=== PATIENT | male | born 2000 | race Caucasian/White ===

== ENCOUNTER 2018-04-26 10:56 | Emergency (ER) | payer BC ==
[2018-04-26] MEDS ORDERED: NS 1,000 ML IV ONE (11:23)
[2018-04-26] MEDS ORDERED: ONDANSETRON 4 MG/2 ML VIAL IVP ONE (11:23)
[2018-04-26 11:36] LABS: PLATELET COUNT 321 10^3/uL (150-400)
--- NOTE | 2018-04-26 11:48 | EDPHY ---
H & P Stated Complaint: abd pain, n/v Time Seen by Provider: 04/26/18 11:21 HPI/ROS: HPI: This is a 17-year-old male who presents with Chief Complaint: Generalized abdominal pain, nausea, vomiting Location: Generalized abdomen Quality: Pain, nausea, vomiting Duration: 1 week Signs and Symptoms: no fever, + nausea, + vomiting, no hematemesis, no blood in stool, no abdominal bloating, no diarrhea, no back pain, no urinary symptoms, no testicular/groin pain, no indigestion, no chest pain, no shortness of breath Timing: Acute, worse in the morning Severity: Moderate Context: Patient is a student at [employer] presents with one-week history of generalized abdominal pain accompanied by nausea and 1-2 episodes of vomiting in the mornings. Treated for strep pharyngitis 2 weeks ago with 10 day course of amoxicillin. Denies any fever, blood in stool, hematemesis, diarrhea, constipation. Reports decreased appetite. No recent foreign travel. No concern for food borne illness. Has not drank any water from wells. Modifying Factors: None Comment: ROS: A comprehensive 10 system review of systems is otherwise negative aside from elements mentioned in the history of present illness. MEDICAL/SURGICAL/SOCIAL HISTORY: Medical history: PNA, strep throat, flu, mono Surgical history: Appendectomy Social history: Current every day smoker. Family history noncontributory. CONSTITUTIONAL: Well-developed, well-nourished teenage white male, awake and alert, no obvious distress HEENT: Atraumatic and normocephalic, PERRL, EOMI. Nares patent; no rhinorrhea; no nasal mucosal edema. Tympanic membranes clear. Oropharynx clear, no exudate and moist pink mucosa. Airway patent. No lymphadenopathy. No meningismus. Cardiovascular: Normal S1/S2, regular rate, regular rhythm, without murmur rub or gallop. PULMONARY/CHEST: Symmetrical and nontender. Clear to auscultation bilaterally. Good air movement. No accessory muscle usage. ABDOMEN: Soft, nondistended, nontender, no rebound, no guarding, no peritoneal signs, no masses or organomegaly. No CVAT. EXTREMITIES: 2/2 pulses, strength 5/5, no deformities, no clubbing, no cyanosis or edema. NEUROLOGICAL: no focal neuro deficits. GCS 15. SKIN: Warm and dry, no erythema. no rash. Good capillary refill. Source: Patient Exam Limitations: No limitations - Personal History Current Tetanus/Diphtheria Vaccine: Yes Current Tetanus Diphtheria and Acellular Pertussis (TDAP): Yes - Medical/Surgical History Hx Asthma: No Hx Chronic Respiratory Disease: No Hx Diabetes: No Hx Cardiac Disease: No Hx Renal Disease: No Hx Cirrhosis: No Hx Alcoholism: No Hx HIV/AIDS: No Hx Splenectomy or Spleen Trauma: No Other PMH: PNA, strep throat, flu, appy, mono - Social History Smoking Status: Current every day smoker Constitutional: Initial Vital Signs Temperature (C) 36.5 C 04/26/18 11:00 Heart Rate 86 04/26/18 11:00 Respiratory Rate 16 04/26/18 11:00 Blood Pressure 121/75 H 04/26/18 11:00 O2 Sat (%) 97 04/26/18 11:00 O2 Delivery Mode Room Air Allergies/Adverse Reactions: No Known Allergies Allergy (Unverified 04/26/18 11:00) Home Medications: Medication Instructions Recorded NK [No Known Home Meds] 04/26/18 Medical Decision Making - Diagnostics Imaging Results: Imaging Impressions Abdomen X-Ray 04/26/18 12:22 Impression: Conspicuous, but nonspecific, small bowel loops in the upper abdomen. ED Course/Re-evaluation: Vital signs reviewed and stable upon arrival. No systemic signs. IV access, laboratory studies, abdominal x-ray ordered Given 1 L normal saline and IV Zofran 4 mg 1228: Labs reviewed. No signs of leukocytosis/anemia/platelet dysfunction/SETH/ elevated LFTs/electrolyte imbalance/pancreatitis. Abdominal x-ray my read shows moderate constipation but no signs of obstruction. Patient will be started on MiraLax, push fluids, increase fiber in diet. This patient was seen under the supervision of my secondary supervising physician. I evaluated care for this patient independently. Differential Diagnosis: Abdominal pain including but not limited to appendicitis, cholecystitis, gastritis and urinary tract infection. - Data Points Laboratory Results: Laboratory Results 04/26/18 11:27 04/26/18 11:27 04/26/18 04/26/18 11:27 11:27 WBC 9.17 10^3/uL 10^3/uL (3.80-9.50) RBC 5.57 10^6/uL 10^6/uL (4.40-6.38) Hgb 16.2 g/dL g/dL (13.7-17.5) Hct 47.6 % % (40.0-51.0) MCV 85.5 fL fL (81.5-99.8) MCH 29.1 pg pg (27.9-34.1) MCHC 34.0 g/dL g/dL (32.4-36.7) RDW 13.0 % % (11.5-15.2) Plt Count 321 10^3/uL 10^3/uL (150-400) MPV 10.4 fL fL (8.7-11.7) Neut % (Auto) 66.1 % % (39.3-74.2) Lymph % (Auto) 24.5 % % (15.0-45.0) [place] % (Auto) 4.1 % L % (4.5-13.0) Eos % (Auto) 4.1 % % (0.6-7.6) Baso % (Auto) 0.5 % % (0.3-1.7) Nucleat RBC Rel Count 0.0 % % (0.0-0.2) Absolute Neuts (auto) 6.05 10^3/uL 10^3/uL (1.70-6.50) Absolute Lymphs (auto) 2.25 10^3/uL 10^3/uL (1.00-3.00) Absolute Monos (auto) 0.38 10^3/uL 10^3/uL (0.30-0.80) Absolute Eos (auto) 0.38 10^3/uL 10^3/uL (0.03-0.40) Absolute Basos (auto) 0.05 10^3/uL 10^3/uL (0.02-0.10) Absolute Nucleated RBC 0.00 10^3/uL 10^3/uL (0-0.01) Immature Gran % 0.7 % % (0.0-1.1) Immature Gran # 0.06 10^3/uL 10^3/uL (0.00-0.10) Sodium 138 mEq/L mEq/L (135-145) Potassium 4.6 mEq/L mEq/L (3.5-5.2) Chloride 103 mEq/L mEq/L (97-110) Carbon Dioxide 23 mEq/l mEq/l (22-31) Anion Gap 12 mEq/L mEq/L (6-14) BUN 18 mg/dL mg/dL (7-23) Creatinine 1.0 mg/dL mg/dL (0.7-1.3) Estimated GFR > 60 Glucose 95 mg/dL mg/dL (70-100) Calcium 9.6 mg/dL mg/dL (8.5-10.4) Total Bilirubin 0.9 mg/dL mg/dL (0.1-1.4) Conjugated Bilirubin 0.4 mg/dL mg/dL (0.0-0.5) Unconjugated Bilirubin 0.5 mg/dL mg/dL (0.0-1.1) AST 23 IU/L IU/L (17-59) ALT 19 IU/L L IU/L (21-72) Alkaline Phosphatase 202 IU/L H IU/L (38-126) Total Protein 7.8 g/dL g/dL (6.3-8.2) Albumin 4.8 g/dL g/dL (3.5-5.0) Lipase 93 IU/L IU/L (23-300) Medications Given: Discontinued Medications Sodium Chloride (Ns) 1,000 mls @ 0 mls/hr IV EDNOW ONE; Wide Open PRN Reason: Protocol Stop: 04/26/18 11:24 Last Admin: 04/26/18 11:40 Dose: 1,000 mls Ondansetron HCl (Zofran) 4 mg IVP EDNOW ONE Stop: 04/26/18 11:24 Last Admin: 04/26/18 11:38 Dose: 4 mg Departure - Departure Disposition: Home, Routine, Self-Care Clinical Impression: Constipation by delayed colonic transit Condition: Good Instructions: Polyethylene Glycol 3350 (By mouth), Constipation (ED), High Fiber Diet (ED) Additional Instructions: Consume a minimum of 8-10 glasses of water or electrolyte fluid replacement drinks that include Gatorade, Powerade, Pedialyte. Eat a bland diet for the next 48 hours and then slowly advance as tolerated. Take MiraLax daily for the next 7 days and then daily as needed for constipation. Referrals: MARLON HONG [Other] - 5-7 days, if not improved
[2018-04-26 13:21] VITALS: BP 121/63
== END 2018-04-26 13:30 | disposition home or self-care (01) ==
DX: K59.00 Constipation, unspecified (principal); R11.2 Nausea with vomiting, unspecified
CPT/HCPCS: 96374; J2405

== ENCOUNTER 2018-07-31 08:43 | Emergency (ER) | payer BC | END 2018-07-31 09:56 | disposition home or self-care (01) ==